=== PATIENT | male | born 2000 | race Caucasian/White ===

== ENCOUNTER 2021-12-04 14:07 | Observation (INO) ==
[2021-12-04] MEDS ORDERED: ACETAMINOPHEN 500 MG TABLET PO STA (14:13)
[2021-12-04 14:42] LABS: Basophils % 0.5 % (0.0-0.8); Eosinophils # 0.1 10*3/uL (0.0-0.87); Eosinophils % 1.6 % (0.00-10.9); Hematocrit 44.6 VOL% (42.0-52.0); Hemoglobin 15.5 GM/DL (14.0-18.0); Immature Granulocytes % 0.2 %; Immature Granulocytes Absolute 0.02 #; Lymphocytes # 0.4 10*3/uL (1.4-4.0); Lymphocytes % 4.9 % (21.2-54.2); Mean Corpuscular HGB Conc 34.8 GM/DL (32-36); Mean Corpuscular Volume 88.1 FL (87-102); Mean Platelet Volume 10.3 FL (9.6-12.0); Monocytes # 1.2 10*3/uL (0.11-0.8); Monocytes % 14.5 % (1.7-12.7); Neutrophils % 78.3 % (38.7-73.9); Platelet Count 211 T/CUMM (130-400); Red Blood Count 5.06 MC/CUMM (3.8-5.5); White Blood Count 8.6 T/CUMM (4-12)
[2021-12-04 15:09] LABS: Alanine Aminotransferase 43 U/L (16-61); Alkaline Phosphatase 75 U/L (45-117); Aspartate Amino Transferase 16 U/L (0-37); Blood Urea Nitrogen 9 MG/DL (7-18); Calcium 9.2 MG/DL (8.5-10.1); Carbon Dioxide 22 MMOL/L (21-32); Chloride 106 MMOL/L (98-107); Glucose 106 MG/DL (74-106); Osmolality,Calculated 271.8 MOS/KG (273-304); Potassium 3.4 MMOL/L (3.5-5.1); Sodium 137 MMOL/L (136-145); Total Protein 7.5 G/DL (6.4-8.2)
[2021-12-04 15:29] LABS: Eosinophils 2 % (0-10); Lymphocytes 4 % (20-55); Metamyelocytes 1 %; Platelet Estimate Normal; Total Cells Counted 100
[2021-12-04] MEDS ORDERED: SODIUM CHLORIDE 0.9% 2,000 ML IV STA (16:39)
[2021-12-04] MEDS ORDERED: PIPERACILLIN/TAZOBACTAM 3,375 MG in SODIUM CHLORIDE 0.9% 100 ML IV STA (16:40)
[2021-12-04] MEDS ORDERED: VANCOMYCIN INJ 1,500 MG in SODIUM CHLORIDE 0.9% 500 ML IV STA (16:49)
[2021-12-04] MEDS ORDERED: SODIUM CHLORIDE 0.9% 2,550 ML IV STA (16:49)
[2021-12-04 17:02] LABS: Mucus,Urine Occasional /LPF (Occasional); RBC,Urine 1 /HPF (0-4)
[2021-12-04 17:03] LABS: Bilirubin,Urine Negative (Negative); Blood, Urine Negative (Negative); Glucose,Urine (UA) Negative (Negative); Ketones,Urine Negative (Negative); Nitrite,Urine Negative (Negative); Protein,Urine Negative (Negative); Urine Appearance Clear (Clear); Urine Color Yellow (Yellow); Urine Urobilinogen 0.2 eU/dL (<2.0)
[2021-12-04] MEDS ORDERED: ONDANSETRON 4 MG/2 ML VIAL IV PRN (17:27)
[2021-12-04] MEDS ORDERED: ALBUTEROL 2.5 MG/3 ML NEB RESP TX PRN (17:27)
[2021-12-04] MEDS ORDERED: DOCUSATE SODIUM 100 MG CAPSULE PO PRN (17:27)
[2021-12-04] MEDS ORDERED: hydrALAZINE 20 MG/1 ML VIAL IV PRN (17:27)
[2021-12-04] MEDS ORDERED: guaiFENesin/DM ER 600-30 MG TABLET PO PRN (17:27)
[2021-12-04] MEDS ORDERED: GLUCAGON 1 MG VIAL IM PRN (17:27)
[2021-12-04] MEDS ORDERED: DEXTROSE 10% 250 ML BAG IV PRN (17:33)
[2021-12-04 18:11] LABS: Barbiturates Screen,Urine Negative (Negative); Benzodiazepines Screen,Urine Negative (Negative); Cannabinoid Screen,Urine Negative (Negative); Opiate Screen,Urine Negative (Negative); Phencyclidine Screen,Urine Negative (Negative)
[2021-12-04] MEDS: ACETAMINOPHEN 325 MG TABLET PO PRN (18:30)
[2021-12-04 20:00] LABS: Hepatitis B Core IgM Quant < 0.05 Index; Hepatitis B Surface Ag Quant < 0.10 Index; Hepatitis B Surface Ag Result Non-Reactive (NonReactive); Hepatitis C Virus Ab Quant 0.04 Index; Hepatitis C Virus Ab Result Non-Reactive (NonReactive)
[2021-12-04] MEDS ORDERED: POTASSIUM CHLORIDE 20 MEQ TABLET PO ONE (20:00)
[2021-12-04] MEDS ORDERED: ACETAMINOPHEN 325 MG TABLET PO ONE (21:18)
[2021-12-04 22:24] LABS: Basophils % 0.3 % (0.0-0.8); Eosinophils # 0.1 10*3/uL (0.0-0.87); Eosinophils % 0.7 % (0.00-10.9); Hematocrit 44.9 VOL% (42.0-52.0); Hemoglobin 15.4 GM/DL (14.0-18.0); Immature Granulocytes % 0.8 %; Immature Granulocytes Absolute 0.06 #; Lymphocytes # 0.7 10*3/uL (1.4-4.0); Lymphocytes % 9.6 % (21.2-54.2); Mean Corpuscular HGB Conc 34.3 GM/DL (32-36); Mean Corpuscular Volume 89.3 FL (87-102); Mean Platelet Volume 10.7 FL (9.6-12.0); Monocytes # 1.5 10*3/uL (0.11-0.8); Monocytes % 20.3 % (1.7-12.7); Neutrophils % 68.3 % (38.7-73.9); Platelet Count 152 T/CUMM (130-400); Red Blood Count 5.03 MC/CUMM (3.8-5.5); Red Cell Distribution Width 12.9 % (9.3-17.3); White Blood Count 7.5 T/CUMM (4-12)
[2021-12-04 22:53] LABS: Eosinophils 1 % (0-10); Lymphocytes 7 % (20-55); Platelet Estimate Adequate; Total Cells Counted 100
[2021-12-05] MEDS: ACETAMINOPHEN 325 MG TABLET PO PRN (02:17)
[2021-12-05] MEDS ORDERED: IBUPROFEN 600 MG TABLET PO PRN (04:41)
[2021-12-05] MEDS: PIPERACILLIN/TAZOBACTAM 3,375 MG in SODIUM CHLORIDE 0.9% 100 ML IV SCH ×3 (04:41→23:02)
[2021-12-05 06:41] LABS: Basophils % 0.5 % (0.0-0.8); Eosinophils % 0.5 % (0.00-10.9); Hematocrit 43.2 VOL% (42.0-52.0); Hemoglobin 14.8 GM/DL (14.0-18.0); Immature Granulocytes % 0.5 %; Immature Granulocytes Absolute 0.03 #; Lymphocytes # 1.2 10*3/uL (1.4-4.0); Mean Corpuscular HGB Conc 34.3 GM/DL (32-36); Mean Corpuscular Volume 89.8 FL (87-102); Mean Platelet Volume 10.6 FL (9.6-12.0); Monocytes # 1.6 10*3/uL (0.11-0.8); Monocytes % 24.1 % (1.7-12.7); Neutrophils % 55.4 % (38.7-73.9); Platelet Count 155 T/CUMM (130-400); Red Blood Count 4.81 MC/CUMM (3.8-5.5); Red Cell Distribution Width 12.9 % (9.3-17.3); White Blood Count 6.4 T/CUMM (4-12)
[2021-12-05 07:03] LABS: Eosinophils 1 % (0-10); Lymphocytes 25 % (20-55); Platelet Estimate Adequate; Total Cells Counted 100
[2021-12-05 07:25] LABS: Albumin 3.6 G/DL (3.4-5.0); Bilirubin,Total 0.5 MG/DL (0.20-1.00); Calcium 8.9 MG/DL (8.5-10.1); Osmolality,Calculated 278.4 MOS/KG (273-304); Potassium 3.6 MMOL/L (3.5-5.1); Risk Ratio 2.73; Thyroid Stimulating Hormone 0.678 uIU/ml (0.358-3.74); Total Protein 6.8 G/DL (6.4-8.2); VLDL Cholesterol 9.6 MG/DL
[2021-12-05] MEDS: VANCOMYCIN INJ 1,500 MG in SODIUM CHLORIDE 0.9% 500 ML IV SCH ×2 (07:43→20:47)
[2021-12-05] MEDS: PANTOPRAZOLE 40 MG TABLET PO SCH (11:32)
[2021-12-05] MEDS ORDERED: ZALEPLON 5 MG CAPSULE PO PRN (12:07)
[2021-12-06] MEDS: PIPERACILLIN/TAZOBACTAM 3,375 MG in SODIUM CHLORIDE 0.9% 100 ML IV SCH ×2 (04:33→13:40)
[2021-12-06 05:19] LABS: Basophils % 0.5 % (0.0-0.8); Eosinophils # 0.2 10*3/uL (0.0-0.87); Eosinophils % 2.3 % (0.00-10.9); Hematocrit 43.5 VOL% (42.0-52.0); Hemoglobin 14.8 GM/DL (14.0-18.0); Immature Granulocytes % 0.3 %; Immature Granulocytes Absolute 0.02 #; Lymphocytes # 1.7 10*3/uL (1.4-4.0); Lymphocytes % 26.9 % (21.2-54.2); Mean Corpuscular Volume 89.9 FL (87-102); Mean Platelet Volume 11.1 FL (9.6-12.0); Monocytes # 1.1 10*3/uL (0.11-0.8); Monocytes % 17.2 % (1.7-12.7); Neutrophils % 52.8 % (38.7-73.9); Platelet Count 157 T/CUMM (130-400); Red Blood Count 4.84 MC/CUMM (3.8-5.5); Red Cell Distribution Width 12.8 % (9.3-17.3); White Blood Count 6.4 T/CUMM (4-12)
[2021-12-06 05:41] LABS: Band Neutrophils 1 % (0-10); Eosinophils 3 % (0-10); Lymphocytes 24 % (20-55); Platelet Estimate Adequate; Total Cells Counted 100
[2021-12-06 05:50] LABS: Alanine Aminotransferase 54 U/L (16-61); Albumin 3.6 G/DL (3.4-5.0); Alkaline Phosphatase 66 U/L (45-117); Aspartate Amino Transferase 25 U/L (0-37); Bilirubin,Total < 0.39 MG/DL (0.20-1.00); Blood Urea Nitrogen 7 MG/DL (7-18); Carbon Dioxide 23 MMOL/L (21-32); Chloride 108 MMOL/L (98-107); Glucose 116 MG/DL (74-106); Osmolality,Calculated 273.7 MOS/KG (273-304); Potassium 3.6 MMOL/L (3.5-5.1); Sodium 138 MMOL/L (136-145); Total Protein 6.9 G/DL (6.4-8.2)
[2021-12-06] MEDS: PANTOPRAZOLE 40 MG TABLET PO SCH (08:57)
[2021-12-06] MEDS: VANCOMYCIN INJ 1,500 MG in SODIUM CHLORIDE 0.9% 500 ML IV SCH (08:58)
[2021-12-06 11:27] VITALS: BP 114/55
== END 2021-12-06 14:50 | disposition home or self-care (01) ==
LOC: N.ED 14:07 → N.EDINP 14:07 → SUATTDRO 17:21 → N.5E 19:14
PROVIDERS: ADMIT Internal Medicine; ATTEND Internal Medicine